=== PATIENT | female | born 1995 | race African-American/Black ===

== ENCOUNTER 2017-02-19 15:00 | Emergency (ER) | payer MEDICAID | END 2017-02-19 15:41 | disposition home or self-care (01) | LOC: D.ER 15:00 | DX: J01.90 Acute sinusitis, unspecified (principal) ==

== ENCOUNTER → 2018-11-24 12:14 | Outpatient (CLI) | payer MEDICAID ==
[~2018-11-24 12:14] MED LIST: FERROUS SULFAT325 MG PO; PRENAVITE1 TAB PO
[2018-11-24 13:18] LABS: BASOPHILS 0.1 % (0-2); EOSINOPHILS 0.2 % (0-7); HEMATOCRIT 30.2 % (36.0-48.0); HEMOGLOBIN 9.7 g/dL (12-16); IMMATURE GRANULOCYTES 0.8 % (0-5); LYMPHOCYTES 7.8 % (15-50); MCH 21.9 pg (26.0-34.0); MCHC 32.1 g/dL (31.0-37.0); MCV 68.2 fL (80.0-100.0); MONOCYTES 5.7 % (2-11); NEUTROPHILS 85.4 % (40-80); PLATELET COUNT 200 10x3/uL (130-400); RBC 4.43 10x6/uL (4.00-5.40); RDW 14.5 % (11.5-14.5); WBC 12.7 10x3/uL (4.8-10.8)
[2018-11-24 13:35] LABS: ALBUMIN 2.5 g/dL (3.4-5.0); ALKALINE PHOSPHATASE 167 U/L (46-116); ALT (SGPT) 14 U/L (10-68); BILIRUBIN - DIRECT 0.08 mg/dL (0.00-0.30); BILIRUBIN - INDIRECT 0.24 mg/dL (0.00-1.00); BILIRUBIN - TOTAL 0.32 mg/dL (0.2-1.3); CALC OSMOLALITY 275 mosm/kg (275-300); CALCIUM 8.6 mg/dL (8.5-10.1); CARBON DIOXIDE 21.3 mmol/L (21.0-32.0); CHLORIDE - SERUM 105 mmol/L (98-107); CREATININE - SERUM 0.8 mg/dL (0.6-1.3); GLUCOSE 117 mg/dL (74-106); PROTEIN - SERUM 6.3 g/dL (6.4-8.2); SODIUM 139 mmol/L (136-145); UREA NITROGEN 3 mg/dL (7-18); URIC ACID 4.1 mg/dL (2.6-7.2); eGFR NON AFRICAN AMERICAN > 90 mL/min (90-120)
[2018-11-24 15:07] LABS: APPEARANCE CLEAR (CLEAR); BILIRUBIN NEGATIVE (NEGATIVE); COLOR STRAW (YELLOW); GLUCOSE NEGATIVE (NEGATIVE); KETONE NEGATIVE (NEGATIVE); NITRITE NEGATIVE (NEGATIVE); PROTEIN NEGATIVE (NEGATIVE); SPECIFIC GRAVITY 1.005 (1.005-1.020); UROBILINOGEN NORMAL (NORMAL)
[2018-11-24 15:09] LABS: RED CELLS - URINE RARE /hpf (0-5); WHITE CELLS - URINE 0-5 /hpf (0-5)
[2018-11-24 15:10] LABS: BACTERIA FEW /hpf (NONE SEEN); EPITHELIAL CELLS 0-5 /hpf (0-5)
[2018-11-28 11:42] LABS: PROTEIN - URINE 8.8 mg/dL (0.0-11.9)
== END | disposition home or self-care (01) ==
LOC: D.LDO 12:14
PROVIDERS: ATTEND Student in an Organized Health Care Education/Training Program
DX: O26.893 Other specified pregnancy related conditions, third trimester (principal)

== ENCOUNTER → 2018-12-02 13:18 | Outpatient (CLI) | payer MEDICAID | END | disposition home or self-care (01) | LOC: D.LDO 13:18 | PROVIDERS: ATTEND Student in an Organized Health Care Education/Training Program | DX: O26.90 Pregnancy related conditions, unspecified, unspecified trimester (principal) ==

== ENCOUNTER → 2018-12-09 10:35 | Outpatient (CLI) | payer MEDICAID ==
[2018-12-09 11:58] LABS: HEMATOCRIT 30.4 % (36.0-48.0); HEMOGLOBIN 9.4 g/dL (12-16); MCH 21.6 pg (26.0-34.0); MCHC 30.9 g/dL (31.0-37.0); MCV 69.9 fL (80.0-100.0); NEUTROPHILS 83.2 % (40-80); PLATELET COUNT 172 10x3/uL (130-400); RBC 4.35 10x6/uL (4.00-5.40); RDW 15.3 % (11.5-14.5); WBC 10.9 10x3/uL (4.8-10.8)
[2018-12-09 12:01] LABS: ALBUMIN 2.3 g/dL (3.4-5.0); ALKALINE PHOSPHATASE 176 U/L (46-116); ALT (SGPT) 10 U/L (10-68); BILIRUBIN - INDIRECT 0.15 mg/dL (0.00-1.00); BILIRUBIN - TOTAL 0.25 mg/dL (0.2-1.3); CALC OSMOLALITY 278 mosm/kg (275-300); CALCIUM 8.6 mg/dL (8.5-10.1); CARBON DIOXIDE 22.6 mmol/L (21.0-32.0); CHLORIDE - SERUM 108 mmol/L (98-107); CREATININE - SERUM 0.8 mg/dL (0.6-1.3); GLUCOSE 119 mg/dL (74-106); POTASSIUM - SERUM 3.6 mmol/L (3.5-5.1); PROTEIN - SERUM 6.6 g/dL (6.4-8.2); SODIUM 141 mmol/L (136-145); UREA NITROGEN 4 mg/dL (7-18); URIC ACID 4.3 mg/dL (2.6-7.2); eGFR NON AFRICAN AMERICAN > 90 mL/min (90-120)
[2018-12-09 12:18] LABS: APPEARANCE HAZY (CLEAR); BACTERIA MODERATE /hpf (NEGATIVE); BILIRUBIN NEGATIVE (NEGATIVE); COLOR YELLOW (YELLOW); GLUCOSE NEGATIVE (NEGATIVE); KETONE NEGATIVE (NEGATIVE); MUCUS <1+ /lpf (NONE SEEN); NITRITE NEGATIVE (NEGATIVE); PROTEIN NEGATIVE (NEGATIVE); RED CELLS - URINE RARE /hpf (0-5); SPECIFIC GRAVITY 1.005 (1.005-1.020); UROBILINOGEN NORMAL (NORMAL); WHITE CELLS - URINE 0-5 /hpf (NEGATIVE)
== END | disposition home or self-care (01) ==
LOC: D.LDO 10:35
PROVIDERS: ATTEND Student in an Organized Health Care Education/Training Program
DX: O26.90 Pregnancy related conditions, unspecified, unspecified trimester (principal); R03.0 Elevated blood-pressure reading, without diagnosis of hypertension

== ENCOUNTER → 2018-12-14 14:27 | Outpatient (CLI) | payer MEDICAID | END | disposition home or self-care (01) | LOC: D.LDO 14:27 | PROVIDERS: ATTEND Student in an Organized Health Care Education/Training Program | DX: O10.913 Unspecified pre-existing hypertension complicating pregnancy, third trimester (principal); Z3A.37 37 weeks gestation of pregnancy ==

== ENCOUNTER 2018-12-18 06:42 | Outpatient (CLI) | payer MEDICAID ==
[2018-12-18] MEDS ORDERED: FERROUS SULFAT325 MG PO (07:23)
[2018-12-18] MEDS ORDERED: PRENAVITE1 TAB PO (07:23)
[2018-12-18 08:33] LABS: APPEARANCE CLEAR (CLEAR); COLOR YELLOW (YELLOW)
[2018-12-18 08:34] LABS: BACTERIA MANY /hpf (NEGATIVE); BILIRUBIN NEGATIVE (NEGATIVE); EPITHELIAL CELLS 0-5 /hpf (0-5); GLUCOSE NEGATIVE (NEGATIVE); KETONE NEGATIVE (NEGATIVE); MUCUS >1+ /lpf (NONE SEEN); NITRITE NEGATIVE (NEGATIVE); PROTEIN NEGATIVE (NEGATIVE); RED CELLS - URINE 0-5 /hpf (0-5); SPECIFIC GRAVITY 1.005 (1.005-1.020); UROBILINOGEN NORMAL (NORMAL)
== END 2018-12-18 09:00 | disposition home or self-care (01) ==
LOC: D.LDO 06:42
PROVIDERS: ATTEND Obstetrics & Gynecology
DX: O47.1 False labor at or after 37 completed weeks of gestation (principal); Z3A.37 37 weeks gestation of pregnancy; O16.3 Unspecified maternal hypertension, third trimester

== ENCOUNTER 2018-12-20 12:35 | Outpatient (CLI) | payer MEDICAID ==
[2018-12-27 22:08] VITALS: BMI 43.2
== END 2018-12-20 13:00 ==
LOC: D.LDO 12:35
PROVIDERS: ATTEND Student in an Organized Health Care Education/Training Program
DX: O26.90 Pregnancy related conditions, unspecified, unspecified trimester (principal)

== ENCOUNTER 2018-12-27 20:00 | Inpatient (IN) | payer MEDICAID ==
[~2018-12-27] VITALS: Ht 157.5 cm; Wt 107.0 kg
[2018-12-27 22:08] VITALS: BP 124/74; Ht 157.5 cm; Wt 107.0 kg
[2018-12-27 22:31] LABS: HEMATOCRIT 30.9 % (36.0-48.0); HEMOGLOBIN 9.7 g/dL (12-16); MCH 21.9 pg (26.0-34.0); MCHC 31.4 g/dL (31.0-37.0); MCV 69.8 fL (80.0-100.0); PLATELET COUNT 197 10x3/uL (130-400); RBC 4.43 10x6/uL (4.00-5.40); RDW 15.9 % (11.5-14.5); WBC 10.4 10x3/uL (4.8-10.8)
[2018-12-27 22:34] LABS: APPEARANCE CLEAR (CLEAR); BILIRUBIN NEGATIVE (NEGATIVE); COLOR YELLOW (YELLOW); GLUCOSE NEGATIVE (NEGATIVE); KETONE NEGATIVE (NEGATIVE); NITRITE NEGATIVE (NEGATIVE); PROTEIN NEGATIVE (NEGATIVE); SPECIFIC GRAVITY 1.015 (1.005-1.020); UROBILINOGEN NORMAL (NORMAL)
[2018-12-27 22:42] LABS: UDS - AMPHET NEGATIVE QUAL (NEGATIVE); UDS - BARB NEGATIVE QUAL (NEGATIVE); UDS - BENZO NEGATIVE QUAL (NEGATIVE); UDS - COCAINE NEGATIVE QUAL (NEGATIVE); UDS - OPIATE NEGATIVE QUAL (NEGATIVE); UDS - PCP NEGATIVE QUAL (NEGATIVE); UDS - THC NEGATIVE QUAL (NEGATIVE)
--- NOTE | 2018-12-28 12:30 | NUR ---
TRANSFERRED FROM LABOR ROOM, ORIENT TO ROOM/CALL LIGHT WITHOUT QUESTIONS. RATES PAIN AT 0/10 AT THIS TIME. INFANT BROUGHT TO ROOM FOR FEEDING. CALL LIGHT IN REACH
--- NOTE | 2018-12-28 14:45 | NUR ---
PT ASKING TO SHOWER, RATES PAIN AT 2/10. IV COVERED, TOWELS AND CLEAN GOWN PLACED IN BATHROOM. INFANT IN CRIB AT BEDSIDE AND SIG OTHER PRESENT. PT UNDERSTANDS TO CALL FOR NURSE IF NEEDED.
--- NOTE | 2018-12-28 16:36 | NUR ---
MOTRIN GIVEN PO SCANNED TO EMAR. PT COMPLAINS OF CRAMPING THAT SHE RATES AT 7/10. INFANT IN ROOM BEING HELD BY FATHER. NO OTHER NEEDS AT THIS TIME.
--- NOTE | 2018-12-28 19:45 | NUR ---
PATIENT SITTING UP IN BED HOLDING . INFANT HANDED TO FATHER. ASSESSMENT AND VITAL SIGNS DONE AT THIS TIME. PATIENT STATES PAIN 4 OUT OF 10. RESPIRATIONS AT EASE. LUNG SOUNDS CLEAR IN ALL RIOS. HEART REGULAR RATE AND RHYTHM. ABDOMEN SOFT, NON TENDER. BOWEL SOUNDS PRESENT IN ALL QUADRANTS. FUNDUS FIRM, MIDLINE, AND 1 BELOW UMBILICUS. SMALL AMOUNT OF LOCHIA NOTED ON WAGNER PAD. NO EDEMA NOTED TO EXTREMITIES. SALINE LOCK TO R HAND. NO REDNESS OR EDEMA NOTED TO SITE. PATIENT DENIES ANY NEEDS AT THIS TIME. BED IN LOWEST POSITION, SIDE RAILS UP X 2, C/L AND WATER WITHIN REACH.
[2018-12-28 19:49] VITALS: BP 116/59
--- NOTE | 2018-12-28 21:30 | NUR ---
PATIENT SITTING UP IN BED. AT BEDSIDE. DENIES ANY NEEDS AT THIS TIME. BED IN LOWEST POSITION, SIDE RAILS UP X 2, C/L AND WATER WITHIN REACH.
--- NOTE | 2018-12-28 22:30 | NUR ---
PATIENT LYING QUIETLY IN BED WITH EYES CLOSED. RESPIRATIONS AT EASE. NO SIGNS OF DISTRESS NOTED. AT BEDSIDE. INFANT LYING QUIETLY ON BACK IN OPEN CRIB WITH RESPIRATIONS AT EASE. BED IN LOWEST POSITION, SIDE RAILS UP X 2, C/L AND WATER WITHIN REACH.
--- NOTE | 2018-12-29 00:17 | NUR ---
PATIENT SITTING UP IN BED HOLDING INFANT.STATES PAIN 7 OUT OF 10. PRN MOTRIN 600 MG ADMINISTERED PO AT THIS TIME. PATEIENT REQUESTS FOR A [place] SODE. [place] SODA PROVIDED. DENIES ANY FURTHER NEEDS. BED IN LOWEST POSITION, SIDE RAILS UP X 2, C/L AND SODA WITHIN REACH.
--- NOTE | 2018-12-29 02:10 | NUR ---
PATIENT LYING QUIETLY IN BED WITH EYES CLOSED. RESPIRATIONS AT EASE. NO SIGNS OF DISTRESS NOTED. BED IN LOWEST POSITION, SIDE RAILS UP X 2, C/L AND WATER WITHIN REACH.
--- NOTE | 2018-12-29 04:15 | NUR ---
PATIENT LYING QUIETLY IN BED WITH EYES CLOSED. EASILY AROUSED. DENIES PAIN AT THIS TIME. VITAL SIGNS DONE. PATIENT DENIES ANY NEEDS. AT BEDSIDE LYING IN OPEN CRIB WITH EYES CLOSED. RESPIRATIONS AT EASE. BED IN LOWEST POSITION, SIDE RAILS UP X 2, C/L AND WATER WITHIN REACH.
[2018-12-29 04:18] VITALS: BP 109/59
--- NOTE | 2018-12-29 06:10 | NUR ---
PATIENT SITTING UP IN BED HOLDING INFANT. DENIES PAIN AT THIS TIME. DENIES ANY NEEDS. BED IN LOWEST POSITION, SIDE RAILS UP X 2, C/L AND WATER WITHIN REACH.
[2018-12-29 07:13] LABS: RAPID PLASMA REAGIN Non Reactive (Non Reactive)
--- NOTE | 2018-12-29 07:45 | NUR ---
SITTING UP IN BED EATING REGULAR DIET, LARGE CUP OF ICE PER REQUEST. WILL CALL WHEN FINISHED EATING SO THAT ASSESSMENT CAN BE COMPLETED.
--- NOTE | 2018-12-29 09:15 | NUR ---
AM ASSESSMENT AND VITAL SIGNS COMPLETED CHARTED TO FLOWSHEET. PT RATES PAIN/CRAMPING AT 6/10 THIS AM, GIVEN MOTRIN ORDERED. FUNDUS FIRM AT U/U WITH SCANT BLEEDING NOTED TO AWGNER PAD. PT DENIES CLOTS WITH VOIDS. SALINE LOCK REMOVED FROM RIGHT HAND WITH CATH INTACT. TAKEN TO NURSERY FOR PEDI ASSESSMENT. PT DENIES NEEDS AT THIS TIME. SIDE RAILS UP X 2 WITH CALL LIGHT AND PHONE IN REACH.
[2018-12-29 09:30] VITALS: BP 131/71
[2018-12-29 10:22] LABS: BASOPHILS 0.1 % (0-2); EOSINOPHILS 0.5 % (0-7); HEMATOCRIT 29.9 % (36.0-48.0); HEMOGLOBIN 9.3 g/dL (12-16); IMMATURE GRANULOCYTES 0.6 % (0-5); MCH 21.6 pg (26.0-34.0); MCHC 31.1 g/dL (31.0-37.0); MCV 69.4 fL (80.0-100.0); MONOCYTES 6.4 % (2-11); NEUTROPHILS 81.4 % (40-80); PLATELET COUNT 166 10x3/uL (130-400); RBC 4.31 10x6/uL (4.00-5.40); RDW 15.9 % (11.5-14.5)
[2018-12-29 10:23] LABS: WBC 13.4 10x3/uL (4.8-10.8)
--- NOTE | 2018-12-29 11:20 | NUR ---
LARGE CUP OF ICE WATER PER PT REQUEST. DENIES PAIN OR DISCOMFORT AT THIS TIME. CALL LIGHT IN REACH.
--- NOTE | 2018-12-29 14:00 | NUR ---
TOP SHEET AND BLANKET CHANGED PER REQUEST DUE TO PEEING ON THEM. OFFERED TO CHANGE ENTIRE BED BUT SHE REFUSED AT THIS TIME.
--- NOTE | 2018-12-29 15:30 | NUR ---
PT AMB TO UNIT DESK TO GET TOWELS FOR HER SHOWER, RATES PAIN AT 2/10 AND DENIES ANY OTHER NEEDS AT THIS TIME.
--- NOTE | 2018-12-29 19:30 | NUR ---
THIS RN TO BEDSIDE FOR INTRODUCTIONS AND INFORM PT THAT THIS RN WILL RETURN TO BEDSIDE FOR SHIFT ASSESSMENT SHORTLY. PAIN AND NEEDS ASSESSED. PT DENIES PAIN OR NEEDS AT THIS TIME.
[2018-12-29 20:20] VITALS: BP 137/65
--- NOTE | 2018-12-29 20:30 | NUR ---
THIS RN TO BEDSIDE FOR SHIFT ASSESSMENT. PT AA&O X 4. PAIN AND NEEDS ASSESSED. PT DENIES PAIN AT PRESENT. SEE FLOWSHEET FOR SHIFT ASSESSMENT.
--- NOTE | 2018-12-29 21:00 | NUR ---
ROUNDS MADE. PT LYING AWAKE WATCHING TV IN BED. PAIN AND NEEDS ASSESSED. PT REPORTS SHE HAS A HEADACHE THAT SHE RATES 5/10. MOTRIN 600MG PO GIVEN. SEE EMAR. NO FURTHER NEEDS AT THIS TIME.
--- NOTE | 2018-12-29 22:45 | NUR ---
ROUNDS MADE. PT SITTING UP IN BED W/INFANT UP IN ARMS. PAIN REASSESSED. PT REPORTS HEADACHE IS GONE. DENIES ANY OTHE PAIN. NO NEEDS VOICED AT THIS TIME.
--- NOTE | 2018-12-29 23:47 | NUR ---
ROUNDS MADE. PT RESTING TO RIGHT SIDE W/EYES CLOSED. RESP EVEN AND UNLABORED. SNORING AUDIBLE. INFANT IN OPEN CRIB AT BEDSIDE. PT LEFT UNDISTURBED AT THIS TIME.
--- NOTE | 2018-12-30 00:45 | NUR ---
ROUNDS MADE. PT LYING AWAKE IN BED. PAIN AND NEEDS ASSESSED. PT DENIES PAIN OR NEEDS AT PRESENT. PT REPORTS SHE IS GETTING READY TO FEED AT AROUND 0100.
--- NOTE | 2018-12-30 04:00 | NUR ---
ROUNDS MADE. PT AWAKE SITTING UP IN BED FEEDING INFANT. DENIES PAIN OR NEEDS AT THISTIME.
--- NOTE | 2018-12-30 07:41 | NUR ---
BEDSIDE REPORT WITH MARIANA ORDONEZ. PT REQUESTS SOMETHING FOR HEMORRHOIDS. WILL NOTIFY MD. PT DENIES FURTHER NEEDS.
--- NOTE | 2018-12-30 08:08 | NUR ---
DR ROBERTSON NOTIFIED OF PT'S REQUEST FOR SOMETHING FOR HEMORRHOIDS. ORDER RCVD FOR ANUSOL CREAM WELL ORDER FOR DISCHARGE. WILL PROCEED ORDERED.
[2018-12-30 09:08] VITALS: BP 142/66
--- NOTE | 2018-12-30 09:08 | NUR ---
THIS RN TO ROOM FOR SHIFT ASSESSMENT. PT SITTING UP ON BEDSIDE, RATES PAIN 4/10, ABD CRAMPING AND PERINEAL/RECTAL PAIN. PT REQUESTING MOTRIN AND ANUSOL CREAM FOR WHEN SHE GETS UP TO BR. SHIFT ASSESSMENT COMPLETED, VSS, SEE FLOWSHEET FOR DOC. PT SYSTOLIC BP NOTED TO BE 142. PT STATES SHE HAS MILD GUNN, BUT THAT SHE HAS HAD THAT "OFF AND ON". PT DENIES BLURRED VISION, SEEING SPOTS, OR ANY OTHER S/S. MILD GENERALIZED EDEMA NOTED TO LE BILAT, NON-PITTING, PEDAL PULSES 2+ BILAT, NEG HOMANS SIGN. POC DISCUSSED WITH PT. PT INSTRUCTED ON S/S TO REPORT REGARDING LOCHIA, DENIES HEAVY FLOW, STATES "IT HAS ACTUALLY BEEN PRETTY LIGHT." PT STATES SHE IS READY TO GO HOME TODAY. DENIES ANY NEEDS FOR SUPPLIES FOR PERICARE. SRUx2, CL IN REACH. SIG OTHER AT BEDSIDE. WILL ADMIN MEDS ORDERED.
--- NOTE | 2018-12-30 09:14 | NUR ---
MEDS ADMIN ORDERED, SEE EMAR FOR DOC. WILL PROCEED WITH DISCHARGE ORDERED.
--- NOTE | 2018-12-30 09:50 | NUR ---
PT SIG OTHER TO UNIT DESK STATING SHE WANTS "SOMETHING TO DRINK WITH CAFFEINE". THIS RN TO ROOM. PT STATES SHE WANTS COCA COLA AND SOME SNACK. PT PROVIDED WITH REQUESTED SODA AND PT NOURISHMENTS. PT DENIES FURTHER NEEDS AT THIS TIME. WILL CONT TO MONITOR.
--- NOTE | 2018-12-30 11:10 | NUR ---
THIS RN TO ROOM FOR PT CHECK AND PAIN REASSESSMENT. PT DENIES PAIN OR NEEDS AT THIS TIME. SRUx2, CL IN REACH. WILL CONT TO MONITOR.
--- NOTE | 2018-12-30 14:18 | NUR ---
PT GIVEN DISCHARGE INSTRUCTIONS FOR SELF CARE POST D/C TO HOME. PT ALSO PROVIDED WITH OZ CARD FOR FOLLOW-UP OZ AT 6 WEEKS . PT VERBALIZES UNDERSTANDING AND DENIES QUESTIONS. PT SIGNS CHART COPIES, PT COPIES GIVEN. PT DENIES NEEDS. DEPENDENCY CASE MANAGER TO ROOM AT THIS TIME.
--- NOTE | 2018-12-30 15:22 | NUR ---
PT CALLS DONOR RECRUITER LIGHT STATING THEY ARE READY FOR DISCHARGE. NURSERY CONFIRMS HAS BEEN DISCHARGED. NOTED TO BE PROPERLY BUCKLED INTO CARSEAT. PT TAKEN OFF UNIT VIA W/C FOR D/C TO HOME WITH . SIG OTHER TO DRIVE PT HOME.
--- NOTE | 2018-12-31 08:39 | MORECARE ---
CASE MANAGEMENT DISCHARGE SUMMARY PATIENT: HECTOR RUVALCABA UNIT: [id number] ADM DATE: 12/27/18 AGE: 23 : 89 SEX: F ROOM/BED: D.1273 AUTHOR: HEATHER WHARTON PHYSICIAN: REFERRING PHYSICIAN: NERI COLMENARES MD DATE OF SERVICE: 12/31/18 Discharge Plan Patient Name: HECTOR RUVALCABA [facility] [facility] 1995 Planned Disposition: Anticipated Discharge Date: Discharge Date: 12/30/2018 Expected LOS: Initial Reviewer: [email or web address] Initial Review Date: 12/27/2018 Generated: 12/31/18 9:39 am Patient Name: HECTOR RUVALCABA Page [id number] at 0839 All edits/amendments must be made on the electronic document DICTATION DATE: 12/31/18838 EXCHANGE ARCHITECT: GIOVANI 12/31/18 08 RPT#: [id number] DC DATE:12/30/18 STATUS: DIS IN [facility] [address] [place] [address] END OF REPORT
== END 2018-12-30 15:22 | disposition home or self-care (01) | DRG 806 ==
LOC: D.LD 20:00
PROVIDERS: Student in an Organized Health Care Education/Training Program; ADMIT Obstetrics & Gynecology; ATTEND Obstetrics & Gynecology
PROC: 3E0P7VZ Introduction of Hormone into Female Reproductive, Via Natural or Artificial Opening (ICD-10-PCS; 2018-12-27)
PROC: 3E033VJ Introduction of Other Hormone into Peripheral Vein, Percutaneous Approach (ICD-10-PCS; 2018-12-27)
PROC: 10E0XZZ Delivery of Products of Conception, External Approach (ICD-10-PCS; principal; 2018-12-28)
DX: O69.81X0 Labor and delivery complicated by cord around neck, without compression, not applicable or unspecified (principal); O10.92 Unspecified pre-existing hypertension complicating childbirth; Z37.0 Single live birth; Z3A.39 39 weeks gestation of pregnancy; O71.82 Other specified trauma to perineum and vulva

== ENCOUNTER → 2019-01-03 11:01 | Outpatient (CLI) | payer MEDICAID ==
[2018-12-27 22:08] VITALS: BMI 43.2
--- NOTE | 2019-01-03 11:10 | NUR ---
Received amb to unit from clinic for blood pressure checks with [facility].
--- NOTE | 2019-01-03 11:30 | NUR ---
IN AND OUT CATH PER CAD DRAFTER, IMMEDIATE RETURN OF CLEAR URINE NOTED. PT ALLOWED UP TO BATHROOM AND PROVIDED WITH WASH CLOTHS AND WAGNER PAD.
--- NOTE | 2019-01-03 12:15 | NUR ---
LAB AT BEDSIDE FOR BLOOD DRAW. IZZY FROM [facility] CALLS TO SAY THAT SHE IS IN ROUTE FOR ORDERED DOPPLERS
[2019-01-03 12:39] LABS: BASOPHILS 0.3 % (0-2); EOSINOPHILS 4.1 % (0-7); HEMATOCRIT 31.7 % (36.0-48.0); HEMOGLOBIN 9.8 g/dL (12-16); IMMATURE GRANULOCYTES 0.4 % (0-5); LYMPHOCYTES 18.1 % (15-50); MCH 21.4 pg (26.0-34.0); MCHC 30.9 g/dL (31.0-37.0); MCV 69.4 fL (80.0-100.0); MEAN PLATELET VOLUME 11.4 fL (7.4-10.4); MONOCYTES 6.6 % (2-11); NEUTROPHILS 70.5 % (40-80); RBC 4.57 10x6/uL (4.00-5.40); RDW 15.9 % (11.5-14.5); WBC 7.9 10x3/uL (4.8-10.8)
[2019-01-03 12:40] LABS: PLATELET COUNT 273 10x3/uL (130-400)
[2019-01-03 12:41] LABS: APPEARANCE CLEAR (CLEAR); BILIRUBIN NEGATIVE (NEGATIVE); COLOR YELLOW (YELLOW); GLUCOSE NEGATIVE (NEGATIVE); KETONE NEGATIVE (NEGATIVE); NITRITE NEGATIVE (NEGATIVE); PROTEIN NEGATIVE (NEGATIVE); SPECIFIC GRAVITY 1.005 (1.005-1.020); UROBILINOGEN NORMAL (NORMAL)
--- NOTE | 2019-01-03 12:49 | NUR ---
DR ROBERTSON ON UNIT. NOTIFIED OF NEG DOPPLER STUDY AND CBC, UA RESULTS, BP'S. AWAITING CHEMISTRY RESULTS.
[2019-01-03 13:00] LABS: ALBUMIN 2.6 g/dL (3.4-5.0); ALKALINE PHOSPHATASE 156 U/L (46-116); ALT (SGPT) 17 U/L (10-68); BILIRUBIN - DIRECT 0.06 mg/dL (0.00-0.30); BILIRUBIN - INDIRECT 0.32 mg/dL (0.00-1.00); BILIRUBIN - TOTAL 0.38 mg/dL (0.2-1.3); CALC OSMOLALITY 278 mosm/kg (275-300); CALCIUM 8.5 mg/dL (8.5-10.1); CARBON DIOXIDE 26.7 mmol/L (21.0-32.0); CHLORIDE - SERUM 109 mmol/L (98-107); CREATININE - SERUM 0.8 mg/dL (0.6-1.3); GLUCOSE 84 mg/dL (74-106); POTASSIUM - SERUM 4.1 mmol/L (3.5-5.1); PROTEIN - SERUM 6.8 g/dL (6.4-8.2); SODIUM 142 mmol/L (136-145); UREA NITROGEN 5 mg/dL (7-18); URIC ACID 6.7 mg/dL (2.6-7.2); eGFR NON AFRICAN AMERICAN > 90 mL/min (90-120)
--- NOTE | 2019-01-03 13:12 | NUR ---
PT ASKING IF SHE IS ABLE TO LEAVE NOW, EXPLAINED THAT ALL LAB RESULTS HAVE NOT YET BEEN RECIEVED. SHE STATES HER UNDERSTANDING, LAB NOTIFIED FOR RESULTS
--- NOTE | 2019-01-03 13:18 | NUR ---
ALL LABS ARE RESULTED, DR ROBERTSON NOTIFIED.
--- NOTE | 2019-01-03 13:58 | NUR ---
DISCHARGE ORDERS RECEIVED, PT TO FOLLOW UP IN CLINIC NEXT WEEK. MD ALSO REQUEST PT BE PROVIDED WITH WRITTEN INFO ABOUT ELEVATED BP POST DELIVERY.
--- NOTE | 2019-01-03 14:00 | NUR ---
VERBAL AND WRITTEN D/C GONE OVER WITH PT, SHE IS GIVEN PRINTED INFO ABOUT S&S OF ELEVATED BP POST DELIVERY AND STATES UNDERSTANDING TO RETURN TO HOSPITAL IF SHE HAS ANY. AMB OFF UNIT PER SELF WITHOUT COMPLAINT OR SIGNS OF DISTRESS.
== END | disposition home or self-care (01) ==
LOC: D.LDO 11:01
PROVIDERS: ATTEND Student in an Organized Health Care Education/Training Program
DX: O26.899 Other specified pregnancy related conditions, unspecified trimester (principal)

== ENCOUNTER 2020-09-21 03:06 | Emergency (ER) | payer MEDICAID ==
[~2020-09-21] VITALS: Ht 157.5 cm; Wt 104.5 kg
[2020-09-21 03:09] VITALS: BP 158/92; Ht 157.5 cm; Wt 104.5 kg
[2020-09-21] MEDS ORDERED: HYDROCHLOROTH12.5 M1 PO (03:11)
[2020-09-21] MEDS ORDERED: ZYRTEC10 MG PO (03:11)
[2020-09-21 03:56] LABS: SARS-CoV-2 ANTIGEN NEGATIVE- SARS-COV-2 (NEGATIVE)
== END 2020-09-21 04:08 | disposition home or self-care (01) ==
LOC: D.ER 03:06
PROVIDERS: Family Medicine
DX: J06.9 Acute upper respiratory infection, unspecified (principal); K21.9 Gastro-esophageal reflux disease without esophagitis